=== PATIENT | male | born 1990 | race Caucasian/White ===

== ENCOUNTER 2023-06-01 21:00 | Emergency (ER) | payer MEDICAID ==
[~2023-06-01] VITALS: Ht 185.4 cm; Wt 172.3 kg
[2023-06-01] MEDS ORDERED: DOXY100T2 PO (22:15)
[2023-06-01] MEDS ORDERED: KETOROLAC INJ 60 MG/2 ML VIAL IM ONE (22:15)
[2023-06-01] MEDS ORDERED: LIDOCAINE 1% INJ 20 ML VIAL INJ ONE (22:15)
[2023-06-01] MEDS ORDERED: cefTRIAXone 1,000 MG VIAL IV/IM IM ONE (22:15)
--- NOTE | 2023-06-01 22:15 | ED Cough/URI ---
General Chief Complaint: Cough/Cold/Flu Symptoms Stated Complaint: COUGH Nursing Triage Note: PT AMB TO [facility] WITH [facility] WITH C/O COUGH AND SOB BEGINING THIS EVENING Allergies and Home Medications Allergies Coded Allergies: nefazodone (Verified Allergy, Unknown, 06/01/23) Past Vffcabt-Ipwmby-Lqiogz Hx Patient Social History Tobacco Use?: Yes Tobacco type used: Cigarettes Smoking Status: Current Everyday Smoker Alcohol Use?: No Pt feels they are or have been: No Immunizations Up To Date Influenza Vaccine Up-to-Date: No; Not Current Past Medical History Surgery/Hospitalization HX: adhd, bipolar, 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 oz. kg; 50.00 BMI Method: Progress/Results/Core Measures Suspected Sepsis SIRS Temperature: Pulse: 90 Respiratory Rate: 20 Blood Pressure 164 /87 Mean: 112 Results/Orders Lab Results Laboratory Tests Test 06/01/23 21:10 Range/Units Influenza Type A (RT-PCR) Not Detected Not Detecte Influenza Type B (RT-PCR) Not Detected Not Detecte SARS-CoV-2 RNA (RT-PCR) Not Detected Not Detecte My Orders Orders - SANAZ JEFFERSON DO Lisaid 19 Inhouse Test (06/01/23 21:07) Influenza A And B By Pcr (06/01/23 21:07) Ceftriaxone Iv/Im (Ceftriaxone Iv/Im) (06/01/23 22:15) Ketorolac Injection (Ketorolac Injection (06/01/23 22:15) Lidocaine 1% Inj 20 Ml (Xylocaine 1% Inj (06/01/23 22:15) Vital Signs/I&O 06/01/23 21:00 Temp 36.1 Pulse 90 Resp 20 B/P (MAP) 164/87 (112) Pulse Ox 97 O2 Delivery Room Air Capillary Refill : Blood Pressure Mean: 112 Departure Impression Primary Impression: Cough Disposition: 01 HOME, SELF-CARE Condition: Stable Departure-Patient Inst. Decision time for Depature: 22:13 Patient Instructions: Cough, Adult (DC) Add. Discharge Instructions: TYLENOL 1 GRAM PLUS MOTRIN 800 MG 4 TIMES A DAY FOR PAIN OR FEVER OVER THE COUNTER MUCINEX DM FOR COUGH FOLLOW UP WITH DR OF CHOICE IN 4-5 DAYS IF NO BETTER All discharge instructions reviewed with patient and/or family. Voiced understanding. Scripts Doxycycline Hyclate (Doxycycline Hyclate) 100 Mg Tablet 100 MG PO BID, #20 TAB 0 Refills Prov: SANAZ JEFFERSON DO 06/01/23 SANAZ JEFFERSON DO Jun 01, 2023 22:15
[2023-06-01 22:35] VITALS: BP 134/98
== END 2023-06-01 22:35 | disposition home or self-care (01) ==
LOC: ER 21:01
DX: R05.9 Cough, unspecified (principal); F17.210 Nicotine dependence, cigarettes, uncomplicated
CPT/HCPCS: 87636; 99284